=== PATIENT | female | born 1965 | race Caucasian/White ===

== ENCOUNTER 2021-06-21 12:08 | Emergency (ER) | payer OTHER ==
[~2021-06-21] VITALS: Ht 167.6 cm; Wt 136.1 kg
[~2021-06-21 12:08] MED LIST: MIRALAX17 GM PO; NORVASC5 MG PO; OXYCODONE HCL 55 MG PO; PERCOCET 10-321 EACH PO; PERCOCET PO; SENOKOT-S1 TA1 PO; SYNTHROID175 MCG PO; TORADOL 10 MG T10 MG PO; XARELTO10 MG PO
[2021-06-21 14:22] LABS: ABSOLUTE BASOPHILS 0.1 thou/uL (0.0-0.2); ABSOLUTE EOSINOPHILS 0.3 thou/uL (0.0-0.7); ABSOLUTE MONOCYTES 0.6 thou/uL (0.0-1.2); ABSOLUTE NEUTROPHILS 4.3 thou/uL (1.6-8.1); BASOPHILS 1.2 %; EOSINOPHILS 4.3 %; HEMATOCRIT 41.3 % (37.0-47.0); HEMOGLOBIN 13.9 gm/dL (12.0-15.0); MCHC 33.6 g/dL (28.0-37.0); MCV 92.1 fL (80.0-100.0); MONOCYTES 8.5 %; MPV 9.7 fl. (7.2-11.1); NUCLEATED RBCS 0 /100WBC; PLATELET COUNT* 184 thou/uL (150-400); RBC 4.49 mil/uL (4.20-5.00); WBC 7.4 thou/uL (4.0-11.0)
[2021-06-21 14:35] LABS: CALCIUM 9.4 mg/dL (8.5-10.1); CREATININE 0.8 mg/dL (0.6-1.3); POTASSIUM 4.1 mmol/L (3.5-5.1)
--- NOTE | 2021-06-21 14:35 | EKG ---
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
[2021-06-21 14:48] LABS: APTT 25.9 Seconds (25.0-31.3); PROTIME 10.6 Seconds (9.20-11.50)
[2021-06-21 14:49] LABS: CK-MB MASS 3.1 ng/mL (<0.5-3.6); MAGNESIUM 2.3 mg/dL (1.8-2.4); TOTAL BILIRUBIN 0.3 mg/dL (<0.1-1.0); TOTAL PROTEIN 7.3 g/dL (6.4-8.2)
[2021-06-21] MEDS ORDERED: ACIPHEX 20 MG T20 MG PO ×2 (16:30→16:33)
[2021-06-21 16:45] VITALS: BP 144/88
--- NOTE | 2021-06-22 09:51 | EKG ---
[place] [address] ELECTROCARDIOGRAM REPORT Name: LUIS BAIRD Room: 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
== END 2021-06-21 16:46 | disposition home or self-care (01) ==
LOC: M.ERS 12:08
PROVIDERS: Emergency Medicine
DX: K21.9 Gastro-esophageal reflux disease without esophagitis (principal); R07.89 Other chest pain; I10 Essential (primary) hypertension; F17.210 Nicotine dependence, cigarettes, uncomplicated; Z90.49 Acquired absence of other specified parts of digestive tract; Z90.89 Acquired absence of other organs; Z79.899 Other long term (current) drug therapy